=== PATIENT | female | born 1980 | race Native Hawaiian/Other Pacific Islander ===

== ENCOUNTER 2016-05-26 04:06 | Emergency (ER) | payer OTHER ==
[~2016-05-26] VITALS: Ht 165.1 cm; Wt 64.4 kg
[2016-05-26 05:05] VITALS: BP 144/93; TEMP 97.6
== END 2016-05-26 05:18 | disposition short-term general hospital (02) ==
LOC: ED 04:06
DX: O80 Encounter for full-term uncomplicated delivery (principal); Z3A.38 38 weeks gestation of pregnancy
CPT/HCPCS: 99285

== ENCOUNTER 2016-05-26 04:40 | Outpatient (CLI) | payer OTHER | END 2016-05-26 05:04 | disposition short-term general hospital (02) | LOC: AMB 04:40 | DX: O80 Encounter for full-term uncomplicated delivery (principal); Z3A.38 38 weeks gestation of pregnancy | CPT/HCPCS: A0425; A0429 ==

== ENCOUNTER 2022-01-22 14:41 | Emergency (ER) | payer OTHER ==
[~2022-01-22] VITALS: Ht 165.1 cm; Wt 61.2 kg
[2022-01-22 14:48] VITALS: BP 107/51; TEMP 98.6
== END 2022-01-22 16:22 | disposition home or self-care (01) ==
LOC: ED 14:41
DX: J01.80 Other acute sinusitis (principal); Z20.822 Contact with and (suspected) exposure to COVID-19
CPT/HCPCS: 87502; 87635; 87651; 99283; U0003